=== PATIENT | female | born 1955 | race Caucasian/White ===

== ENCOUNTER 2021-11-20 15:24 | Inpatient (IN) | payer OTHER ==
[~2021-11-20] VITALS: Ht 165.1 cm; Wt 82.1 kg
[2021-11-21 01:24] VITALS: BP 159/59
--- NOTE | 2021-11-21 03:58 | NUR ---
Assumed care of pt upon admission from ED at 0013 this shift. Pt admitted via W/C et was transported to room. Pt ambulated from chair to bed ad rudy with steady gait. VSWNL. Initial health assessment with no abnormalities noted at present time. Small abrasion to right forearm left open to air. Pt's mother contacted upon admission et informed of admission et given code for communication. Pt's mother states that she does not have a guardian or DPOA at present time. Admission packet received from facility includes two affidavits for admission due to pt's inability to cognitively process admission to unit at this time. Necessary paperwork filled out et faxed to the proper authorities. Pt states, "I came from [facility]. I'm retarded and crazy and I have schizophrenia". APRNs for psych et hospitalists contacted et notified of admission et orders received. Pt currently resting in bed with eyes closed. Will continue to monitor per unit protocol.
[2021-11-21 09:29] VITALS: BP 131/94
[2021-11-21 10:48] LABS: ANION GAP 10 mmol/L (7-16); BUN 12 mg/dL (7-18); CALCIUM 9.3 mg/dL (8.5-10.1); CHLORIDE 96 mmol/L (98-107); CHOLESTEROL 245 mg/dL (<200); CO2 25 mmol/L (21-32); CREATININE 0.7 mg/dL (0.6-1.0); GLUCOSE 156 mg/dL (74-106); HDL CHOLESTEROL 46 mg/dL (>40); LDL CHOLESTEROL 163 mg/dL (<100); POTASSIUM 3.8 mmol/L (3.5-5.1); SODIUM 131 mmol/L (136-145); TC:HDL 5.3 Ratio (Not establshd); TRIGLYCERIDE 181 mg/dL (<150); VLDL 36 mg/dL (<40)
--- NOTE | 2021-11-21 11:17 | NUR ---
ANXIOUS FACIAL EXPRESSION AND PRESSURED SPEECH WHEN APPROACHED IN DAYROOM FOR INITIAL ASSESSMENT THIS AM. WHEN NURSE INTRODUCED SELF RESPONDED WITH A LONG RAMBLING CONVERSTION WHICH WAS INCOHERENT AT TIMES AND DIFFICULT TO FOLLOW-"I CAME FROM [facility]-I SO I COULD GO TO [facility]" "I DON'T WANT TO -AM I GOING TO "OFFERED AM MEDS AND STATES "IF I TAKE THOSE MEDS WILL I "AT THIS POINT TURNED HEAD AWAY FROM STAFF AND WAS WHISPERING TO UNSEEN OTHERS. DID TAKE AM MEDICATIONS-APPEARS UNABLE TO ANSWER QUESTIONS RE PHYSICAL HEALTH OR EVENTS LEADING TO ADMIT SHE STARES INTENTLY AHEAD WHEN ASKED AND OFFERS NO VERBAL RESPONSES. DID ALLOW NURSE TO LISTEN TO HEART LUNGS AND BS. DENIES PAIN. GAIT APPEARS STEADY AT THIS TIME.
--- NOTE | 2021-11-21 13:06 | NUR ---
New admit to [facility] with SI and manic episode. Noted with consult stating "diet instruction, carb control diet." Noted with very little information on pt thus far as she was admitted after midnight this morning. RD did not attempt to visit pt r/t chart review revealed pt not answering questions for staff, stares blankly when asked questions and gives no verbal response. Other reports of pt with incoherent ramblings/stories. She is on carb control diet. Labs reviewed and show hyperglycemia; A1c pending. B12 deficiency, supplementation in place. Chol and trig elevated; on statin. Only 50% intake at bkft this AM, no other meals to assess intakes. RD to follow up next week. Place as low nutrition risk at this time.
--- NOTE | 2021-11-21 15:36 | NUR ---
VISTARIL 50MG GIVEN PO PRN FOR ANXIETY/AGITATION 1T 0830 AND REPEATED AT 1530 BECOMES LOUDLY TEARFUL-STATING SHE IS GOING TO LIVE HERE-SHE WAS PROCLAIMING LOUDLY IN THE DAYROOM THAT SHE HAD "LOST HER VAGINA" AND "COULDN'T FIND THE HOLE" WAS NOTED TO BE ABLE TO SIT CALMLY FOR 5-10 MINUTES AFTER PRN VISTARIL
--- NOTE | 2021-11-21 17:49 | NUR ---
JEREMY and Dr. Auguste met with the Pt. Pt was unable to provide any history or relevant information due to active psychosis. SW was able to call the Pt's placement [facility]. They connected JEREMY with the Pt's clinical case manager, Lan Cardoso [phone]. Lan was able to provide some history on the Pt. Lan informed that [facility] [place] [facility], [facility] does manage the Pt's medications however Pt is able to leave at will. Lan believes the Pt went to the store and purchased the asprin. Lan informed about 2 months ago the Pt went inpt and was put on Zyprexa. Pt made complaints about side effects of the medications. This is also when SI statements started. Pt also had an increase in anxiety. Lan stated they could not identify any specific triggers or event. Lan stated the Pt was unhappy being at [facility] and felt she needed to be in a state hospital. Lan confirmed the Pt did not have a guardian or DPOA. Lan stated prior to the Pt's decline Pt was doing well in the program. JEREMY informed that the Pt would benefit from a guardian. Also a higher level of care. Lan voiced agreement. Lan informed that it is very difficult to get [facility] to pursue guardianships. Lan stated he believed the Pt would do better in an RCF or assisted living level of care. JEREMY explained that with the Pt's chonic mental illness a lot of places may be hesitant to accept due to the Pt not having a DPOA or guardian. Lan stated he would talk to his processing talc and borate supervisor about a guardianship. JEREMY will continue to follow
[2021-11-21 21:05] VITALS: BP 159/73
--- NOTE | 2021-11-22 06:08 | NUR ---
Assumed care of pt at 1900. Pt calm et cooperative this shift. Took medications whole without difficulty. Ambulates the halls ad rudy with steady gait. VSWNL. Health assessment with no abnormalities noted at present time. Denies SI/Hi at present time but unsure as to whether the pt truly understands the questions answered due to some cognitive deficits. Isolated in room most of shift. Currently resting in bed with eyes closed. Will continue to monitor per unit protocol.
[2021-11-22 07:12] LABS: GLYCOHEMOGLOBIN (HGB A1C) 6.9 % (4.8-5.6)
[2021-11-22 07:45] VITALS: BP 123/40
[2021-11-22 09:27] VITALS: BP 123/68
--- NOTE | 2021-11-22 10:46 | NUR ---
RESUMMED CARE FROM OVERNIGHT SHIFT THIS AM, PATIENT LYING IN BED QUIET. UPON ASSESSING PATIENT SHE IS VERY ANXIOUS AND ASKED IF SHE COULD STAY IN HER ROOM. SHE STATES SHE IS AFRAID OF EVERYTHING AND SOMETIMES SHE JUST WANTS TO . I TALKED WITH PATIENT TO REASSURE HER NO ONE HER IS GOING TO HURT HER AND THAT SHE IN IN THE HOSPITAL AND IS SAFE. PATIENT DENIES SI/HI/AH/VH AT PRESENT; PATIENT DOES HAVE ANXIETY AND DEPRESSION THAT SHE RATES AT A 10. PATIENTS ABDOMEN SOFT BOWEL SOUNDS PRESENT, PATIENTS LUNGS CLEAR. PATIENT HAS ATHLETE FOOT ON BOTH FEET AND HAS ANTI FUNGAL CREAM FOR FEET. WILL CONTINUE TO MONITOR PATIENT FOR SAFETY AND BEHAVIORS.
[2021-11-22 13:31] LABS: ABSOLUTE NEUTROPHILS 6.5 thou/uL (1.4-8.2); BASOPHILS 0.8 % (0.0-2.0); EOSINOPHILS 0.2 % (0.0-3.0); HEMATOCRIT 39.1 % (37.0-47.0); HEMOGLOBIN 12.7 gm/dL (12.0-15.0); LYMPHOCYTES 18.3 % (24.0-44.0); MCH 28.1 pg (26.0-34.0); MCHC 32.5 g/dL (28.0-37.0); MCV 86.4 fL (80.0-100.0); MONOCYTES 10.8 % (1.0-8.0); PLATELET COUNT 327 thou/uL (150-400); POLYS 69.9 % (36.0-66.0); RBC 4.53 mil/uL (4.20-5.00); RDW 14.1 % (10.5-14.5); WBC 9.3 thou/uL (4.0-11.0)
[2021-11-22 13:50] LABS: ALBUMIN 3.7 g/dL (3.4-5.0); CALCIUM 9.3 mg/dL (8.5-10.1); CREATININE 0.7 mg/dL (0.6-1.0); MAGNESIUM 2.5 mg/dL (1.8-2.4); POTASSIUM 4.4 mmol/L (3.5-5.1); TOTAL BILIRUBIN 0.4 mg/dL (0.2-1.0); TOTAL PROTEIN 7.4 g/dL (6.4-8.2)
[2021-11-22 19:32] VITALS: BP 93/52
[2021-11-22 21:27] LABS: URINE BILIRUBIN NEGATIVE (Negative); URINE BLOOD TRACE (Negative); URINE CLARITY SL CLOUDY; URINE COLOR YELLOW; URINE GLUCOSE-RANDOM* NEGATIVE (Negative); URINE KETONES NEGATIVE (Negative); URINE LEUKOCYTES-REFLEX 1+ (Negative); URINE NITRITE-REFLEX NEGATIVE (Negative); URINE PROTEIN (DIPSTICK) 1+ (Negative); URINE SPECIFIC GRAVITY >= 1.030 (1.005-1.035); URINE UROBILINOGEN 0.2 E.U./dl (0.2-1.0)
[2021-11-22 21:42] LABS: CASTS None Seen /LPF (None Seen); SQUAMOUS 4-10 Moderate /LPF (0-3)
[2021-11-22 21:43] LABS: BACTERIA-REFLEX >30 Many /HPF (None Seen); CRYSTALS None Seen /LPF (None Seen); URINE RBC 1-2 Rare /HPF (NONE SEEN); URINE WBC-REFLEX 6-15 Few /HPF (0-5)
--- NOTE | 2021-11-22 21:53 | H ---
[facility] [place] [address] HISTORY AND PHYSICAL Name: BRENT DUNCAN Room #: 525A-A ADM IN M.R.#: [id number] Admission: 11/21/21 Attend Phys: Robel English DO Discharge: Date of : 59 Report #: [id number] THIS REPORT FOR: cc: FAM - Family physician unknown FAM - Family physician unknown Robel English DO ~ DATE OF SERVICE: 11/21/2021 INPATIENT PSYCHIATRIC EVALUATION ATTENDING PSYCHIATRIST: Robel English DO MEDICAL CONSULTANTS: Silvina Bella APRN and Adonay Goodrich MD, and his hospitalist team. REASON FOR ADMISSION: Intentional suicide attempts, overdose, status post medical admission at [facility]. SOURCES OF INFORMATION: Mostly records from [facility], the patient is very psychotic and a very poor historian. CHIEF COMPLAINT: "Im in heaven" HISTORY OF PRESENT ILLNESS: This is a 66-year-old single female transferred from [facility] status post a medical admission for a suicide attempt on aspirin. Records reviewed, including affidavits. The patient was a nurse at [facility], states upon assessment, the patient stated "myself, I took an overdose and committed suicide." When asked why she did that, the patient stated "I was in a deep mine and I can't take any meds for it." communications officer, Ram from the [employer] did an affidavit that was dispatched to [facility] in regard to her suicide attempt. Upon arrival, I contacted the patient, who states that approximately 3 hours prior to calling, she swallowed 92 aspirin pills orally. The patient stated that she took the medicine due to wanting to because she is tortured. It looks like her date of admit was 11/13/2021 at [facility]. Psychiatric consultation there stated she was anxious, dysphoric, intermittently labile on various topics. Her speech becomes loud and pressured. States she has been depressed for months. She has been considering suicide for a few weeks. Collateral we got from [facility] stated she has been decompensated for a 2-month time period. Psych consult from [facility] states "I thought about drowning, but could not get the nerve up, the water would bubble back out even when I tried the "subtrick." The patient states she eventually decided to overdose on aspirin, took ____ mg aspirin. States she was intending to kill herself, "God didn't want to take me, he wouldn't let it work, I laid in bed for 3-1/2 hours waiting to and I couldn't ." She denied auditory or visual hallucinations and [facility] [address] [place] [address] HISTORY AND PHYSICAL Name: BRENT DUNCAN Room #: 525A-A ADM IN M.R.#: [id number] Admission: 11/21/21 Attend Phys: Robel English DO Discharge: Date of : 59 Report #: [id number] claims she has not had AVH of any sort "in a month." There are no voices, they are shutdown, they are , to the world. She actually told them at [facility] she wanted to get her meds fixed and requested a psychiatric admission. She denied access to firearms. MEDICATIONS: Her home medications were Reglan, miconazole nitrate, vitamin D3, escitalopram, calcium carbonate, rosuvastatin, sitagliptin, hydroxyzine, pantoprazole, metformin, propranolol, clonazepam, olanzapine, trazodone, melatonin. REVIEW OF SYSTEMS: From [facility]: CONSTITUTIONAL No chills or fever. EYES: Normal. No change. ENT: No change. RESPIRATORY: No change. CARDIOVASCULAR: No change. GASTROINTESTINAL: She complained of nausea initially, not today. GENITOURINARY: No change. NEUROLOGIC: She had denied headache or vision changes. LABORATORY DATA: From [facility]: I will read some of the highlights, it looks like from 11/13/2021. Sodium 136, potassium 2.8, chloride 99, bicarbonate 30, anion gap 10, BUN 6, creatinine 0.6, GFR 106.8, calcium 7.2, magnesium 1.8, salicylate 19. VBG was 7.46, pCO2 of 40.5, pO2 of 18.2. She was on 21% on room air. White count 13.1, H and H 12.5 and 35.7, platelet count 286. ADDITIONAL INFORMATION: From [facility]: It looks like they put a central line in her. I did get a report that Nephrology was consulted, was in the ICU several days. She underwent dialysis and sodium bicarbonate administration, so she did go into significant renal failure from her overdose. I do not believe she was on the ventilator at all. Looks like her white count reached a high of 17.4 thousand. EKG from 11/13/2021 showed QTc 436, QT interval 386, ventricular rate 84. Salicylate level, I am not sure what it peaked at, it was 2.2 on 11/14/2021. Looks like Dr. Love saw her. PAST PSYCHIATRIC HISTORY: Includes greater than 30 psychiatric admissions, 3 prior suicide attempts including prior Thorazine overdose. [facility] with [facility], sees Ms. Phan. She lives at [facility], which I believe is a [employer] having sponsored fpc. Denies owning or access to firearms. No alcohol, tobacco or illicit drug use. She is unemployed, on disability. I was looking also for more of her medical history, which does not actually say any particular medical problems prior to this overdose and I suspect missing a lot of information on her. [facility] [address] [place] [address] HISTORY AND PHYSICAL Name: BRENT DUNCAN Room #: 525A-A ADM IN .R.#: [id number] Admission: 11/21/21 Attend Phys: Robel English, Discharge: Date of : 59 Report #: [id number] Followup labs from 11/16/2021, sodium 137, potassium 3.9, chloride 100, bicarbonate 23, anion gap 18, glucose random 122, BUN 4, creatinine 0.6, calcium 9.1, magnesium 2.1. White count 7.7, H and H 11.5 and 34.2. Again, this is from 11/16/2021. Platelet count 248. PHYSICAL EXAMINATION: VITAL SIGNS: Here at [facility], temperature 37.1, pulse 68, respirations 18, BP 131/94, O2 sat 97%. Weight 82.67 kilograms. Current laboratories that were done today, sodium down to 131, potassium 3.8, chloride 96, bicarbonate 25, anion gap 10, BUN 12, creatinine 0.7, estimated GFR 84. Triglycerides 181, cholesterol 245, LDL 163, HDL 46. B12 low at 195. We will going ahead with IM replacement. TSH 0.459. COVID-19 serology was negative. No imaging done so far. The hospitalist's note adds additional medical history of diabetes. A1c is pending here at [facility]. Hypertension, hyperlipidemia and the hospitalist started IM B12 replacement. CURRENT MEDICATIONS: Here at [facility], cyanocobalamin; B12 IM x 3 days; Lexapro 10 mg p.o. daily; B12 1000 mcg oral daily, starting on the . Olanzapine was 10 mg at bedtime, I added a 5 mg a.m. dose. Melatonin 5 mg at bedtime. Atorvastatin 40 mg at bedtime. She is on miconazole topical, I guess she has yeast rash. Metformin 500 mg p.o. b.i.d., Protonix 40 mg p.o. daily, calcium carbonate 600 mg before meals. There is hydroxyzine 50 mg 4 times a day p.r.n. for acute anxiety. Otherwise, house PRNs. ALLERGIES: NUMEROUS, CHLORPROMAZINE, FLUPHENAZINE, HALOPERIDOL. MENTAL STATUS EXAMINATION: Well-developed, much older than stated age appearing female. Attention impaired. Concentration impaired. Speech slowed and monotone. Grossly delayed in response. Denied worry. She denies auditory, visual, or tactile hallucinations, but I really do not think she was responding appropriately to my questions. Mood and affect was constricted, congruent. Memory not formally tested. Insight and judgment impaired. Fund of knowledge well below average. FORMULATION: A 66-year-old female transferred from [facility] after an intentional overdose. The patient was admitted under a 96-hour hold; however, it turns out she has no DPOA and no guardian, so if she does not sign in voluntarily, we will be discharging her at the end of the . DIAGNOSIS: Schizoaffective disorder, depressed type, acute exacerbation. Medical comorbidities include diabetes, hypertension, hyperlipidemia, reportedly [facility] [address] [place] [address] HISTORY AND PHYSICAL Name: BRENT DUNCAN Room #: 525A-A ADM IN M.R.#: [id number] Admission: 11/21/21 Attend Phys: Robel English DO Discharge: Date of : 59 Report #: [id number] status post recent dialysis; severe B12 deficiency, under 200 mcg/dL. STRENGTHS: She is insured, has placement. WEAKNESSES: Grossly psychotic. No surrogate decision maker. PLAN: Admitted involuntarily to [facility] to evaluate and stabilize, obtain collateral. Hospitalist is consulted. I will go ahead and get an updated EKG on her since we are going to be working on antipsychotic. ESTIMATED LENGTH OF STAY: Probably in the 5-7 day' range given her involuntary nature and that she probably will not meet criteria for a 21-day petition. Time spent on this case was greater than 60 minutes, greater than 50% of the time was spent on review of records and coordination of care. <ELECTRONICALLY SIGNED> By: Robel English DO 11/22/21 2153 [id number] Robel English DO /nt
--- NOTE | 2021-11-23 04:27 | NUR ---
Assumed care of pt at 1900. Pt calm et cooperative this shift. Took medications whole without difficulty but had somatic c/o later in the shift which she attributes to her medications. Refused add on ordered meds of Atorvastatin et Lovenox injection this shift because she states they are going to make her sick et kill her. HS accucheck 168 resulting in Lispro 3u administered via sliding scale. Ambulates the halls ad rudy with steady gait. VSWNL. Health assessment with no abnormalities noted at present time. Pt denies SI/HI/AVH at present time but unsure if she completely understands the questions due to cognitive deficit. Currently resting in bed with eyes closed. Will continue to monitor per unit protocol.
[2021-11-23 09:10] VITALS: BP 134/56
--- NOTE | 2021-11-23 10:32 | EKG ---
[address] [address] ELECTROCARDIOGRAM REPORT Name: BRENT DUNCAN Room #: [facility]- ADM IN M.R.#: [id number] Admission: 11/21/21 Attend Phys: Robel English DO Discharge: Date of : 59 Report #: [id number] [facility] Test Date: 2021-11-23 Test Time: 09:44:25 Pat Name: BRENT DUNCAN Department: Room: [facility] Gender: F [employer] Education Consultant: [place] : 1955 Requested By: Marcelina Moreno Order Number: [id number] MD: Juan Francisco Santana Measurements Intervals [place] Rate: 81 P: 58 [place]: 142 QRS: -10 QRSD: 89 T: 57 QT: 406 QTc: 472 Interpretive Statements Sinus rhythm No previous ECG available for comparison Electronically Signed On 11-23-2021 10:32:03 DEMAND INSPECTOR by Juan Francisco Santana [email or web address] <ELECTRONICALLY SIGNED> By: Juan Francisco Santana MD, [facility] 11/23/21 1032 0944 0944 Juan Francisco Santana MD, FACC /EPI
--- NOTE | 2021-11-23 11:09 | NUR ---
HAS BEEN WITHDRAWN TO ROOM THIS AM. REFUSED BREAKFAST AND AM INSULIN NOT ADMINISTERD FOR REFUSAL TO EAT. TEARFUL AND SOMATIC DURING 1;1 ASSESSMENT WITH NURSING STAFF-OFFERS VAGUE SOMATIC COMPLAINTS STATING SEVERAL TIMES "I'M SICK" BUT UNABLE TO SPECIFY OTHER THAN STATING "IT'S IN MY BODY-IT'S ALL OVER MY BODY" DENIES SPECIFIC AREA OF PAIN-LUNGS CLEAR-NO COUGH OR SOB NOTED. 02 SAT 97 PERCENT ON RA. BS ACTIVE X4-DENIES N/V BUT STATES STOMACH IS "SICK"NO BLADDER DISTENSION NOTED AND HAS VOIDED IN TOILET X1 SO FAR THIS AM. SKIN W/D. AFEBRILE. BP 134/56. HEART RATE 80-REGULAR. NOTED TO BE TALKING TO UNSEEN OTHERS DURING 1;1 INTERACTION WHEN ASKED WHO SHE WAS TALKING TO TURNS HEAD AWAY AND DOES NOT ANSWER.
[2021-11-23 20:20] VITALS: BP 141/74
[2021-11-23 20:21] VITALS: BP 141/74
--- NOTE | 2021-11-23 23:18 | NUR ---
PATIENT HAS BEEN IN HER ROOM ALL EVENING AND DROWSY. SHE APPEARS TO BE SLEEPING AT THIS TIME. SHE IS A/0X2. SHE DID AWAKEN TO USE THE BATHROOM AND THEN BACK TO BED. SHE TAKES HER MEDS WHOLE WITH WATER. SHE JUST WANTS TO BE LEFT ALONE TO SLEEP. SHE DENIES SI/HI/AVH AT THIS TIME. PATIENT IS A LOW FALL RISK BUT D/T INCREASE DROWSINESS, BED ALARM PLACED ON. PATIENT IRRITABLE WHEN AWOKEN. ROUTINE ROUNDS TO ASSESS SAFETY AND STATUS OF PATIENT.
[2021-11-24 08:42] VITALS: BP 124/45
[2021-11-24 10:00] VITALS: BP 124/45
--- NOTE | 2021-11-24 13:03 | NUR ---
Assumed pt care from overnight shift this am. Client was in bed resting during this time, and did not want to get out of bed, stating that she wanted to rest. Client presented alert and oriented 2x, and would not answer any further orientation questions, calling herself "retarded" and asking if she could continue to sleep. Staff used therapeutic communication at this time to communicate with client, and coaxed client to answer further questions. Client denied si/hi and hallucinations at this time. Client did not voice depression, but stated that she is "always anxious." Client given all medications at this time. Client also informed that she would later on be going for a nuclear medicine study and would need an IV placement. Nursing demonstrated how IV would work to pt, and pt voiced understanding. Pt lung sounds were clear. Bowel sounds active. Last bm 11/23/21 per pt report. Pt given prn hydox as well as scheduled olanzapine before perfusion study. IV inserted. Taken to study and came back to floor. Pt did not voice any concerns after this. No further status changes at this time.
[2021-11-24 19:55] VITALS: BP 135/77
[2021-11-24 19:56] LABS: URINE BILIRUBIN NEGATIVE (Negative); URINE BLOOD NEGATIVE (Negative); URINE CLARITY SL CLOUDY; URINE COLOR YELLOW; URINE GLUCOSE-RANDOM* TRACE (Negative); URINE KETONES NEGATIVE (Negative); URINE LEUKOCYTES-REFLEX NEGATIVE (Negative); URINE NITRITE-REFLEX NEGATIVE (Negative); URINE PROTEIN (DIPSTICK) NEGATIVE (Negative); URINE UROBILINOGEN 0.2 E.U./dl (0.2-1.0)
[2021-11-24 20:32] VITALS: BP 135/77
--- NOTE | 2021-11-24 20:43 | NUR ---
PATIENT WAS IN BED AWAKE WHEN ASSUMED CARE OF PATIENT AT 1900. HER FIRST STATEMENT WAS THAT SHE IS RETARDED. I ASKED HER WHY SHE THOUGHT THAT AND SHE SAID, PLEASE DON'T MAKE FUN OF ME. I EXPLAINED I WAS NOT MAKING FUN OF HER BUT WAS CURIOUS WHY SHE THOUGHT SHE WAS RETARDED. I TOLD HER SHE WAS NOT RETARDED. SHE WAS LESS IRRITABLE TONIGHT WITH CARES. SHE COOPERATED IN TAKING HER MEDS WHOLE AND HER ASSESSMENT. SHE DID ASK FOR A SNACK AND I LET HER KNOW THAT SNACKS WERE IN THE DINING ROOM AND IT WAS TIME FOR HER TO GO GET ONE. SHE DID GO GET A SNACK AND ATE IT IN THE DINING ROOM WITH OTHERS WHILE WATCHING TV. SHE WENT BACK TO HER ROOM AND SLEPT. UA WAS COLLECTED AT BEGINNING OF THE SHIFT AND SENT TO LAB FOR ANALYSIS. GLUCOSE WAS 221 AND 4 U OF LISPRO WAS GIVEN. PATIENT DENIES PAIN, SI/HI/AVH. VSS. BED IN LOW POSITION. PATIENT IS NOT A FALL RISK. ROUTINE ROUNDS TO ASSESS SAFETY AND STATUS OF PATIENT. PATIENT DID REQUEST TRAZADONE FOR SLEEP TONIGHT.
[2021-11-25 07:47] VITALS: BP 132/71
--- NOTE | 2021-11-25 11:56 | NUR ---
Alert and orientated X3. Isolates to room when not in group/meals. Denies SI/HI. Breath sounds clear. Reg HR ausculated. Color pink with brisk capillary refill and palpable peripheral pulses. Incontinent of yellow urine per brief. Active bowel sounds over soft, rounded abdomen. Excoriated reddened area under R breast, antifungal cream applied. Ambulates with regular, steady gait. Currently eating lunch without s/o distress.
[2021-11-25 20:08] VITALS: BP 108/58
--- NOTE | 2021-11-26 03:49 | NUR ---
11-25-21 CARE TRANSFERRED 0 OBSERVED PT SITTING IN DAY ROOM. LATER PT AAOX2, VSS, RR EVEN AND NONLABORED ON RA, LUNGS CLEAR, HT RR, ABD SOFT/ACTIVE, PT DENIES ANY PAIN AND SI/HI. PT WAS CALM AND COOPERATIVE DURING NURSING ASSESSEMENT. PT HAD NO DIFFICULTIES TAKING MEDICATION WHOLE WITH WATER. PT BED WAS ADJUSTED FOR COMFORT. LATER NOTED PT RESTLESS AND WALKING BACK AND FORTH FROM DAY ROOM TO ROOM; PT DENIED PAIN. LATER NOTED PT RESTING WITH EYES CLOSED. PT WILL CONTINUE TO BE MONITOR PER [facility] PROTOCOL.
[2021-11-26 09:38] VITALS: BP 141/90
[2021-11-26 11:49] VITALS: BP 141/90
--- NOTE | 2021-11-26 13:05 | NUR ---
RESUMMED CARE; PATIENT LOCATED IN ROOM RESTING IN BED; A&O*2; DENIES PAIN-SOB-CP; PATIENTS CONCERN IS IN REGARDS TO A PLACE TO LIVE OUTSIDE OF [facility]; PATIENT NOTED COMING UP TO NURSES STATION CONCERNED ABOUT "HOW AM I GOING TO PAY FOR INTERMEDIATE, JUST KEEP ME HERE, I HAVE A BED HERE." PATIENT REDIRCTABLE; DENIES SI/HI/AVH; STATES "I AM ANXIOUS BUT I DONT KNOW" & "YEAH, I AM DEPRESSED ABOUT WHERE I AM GOING TO SLEEP." PRESENTS TO FACILITY COORDINATOR- WITHDRAWN, MED/MEAL COMPLIANT, DEPRESSED; RASH PRESENT UNDER THE RIGHT BREAST-CREAM APPLIED PER MAR; STEADY GAIT-SLOW PACE; LOW FALL PRECAUTIONS IN PLACE; WILL CONTINUE TO MONITIOR FOR SAFETY AND BEHAVIORS;
[2021-11-26 19:26] VITALS: BP 144/44
--- NOTE | 2021-11-27 04:09 | NUR ---
11-27-21 CARE TRANSFERRED 1900 OBSERVED PT SITTING IN DAYROOM. PT AAOX2, VSS, RR EVEN AND NONLABORED RA, LUNGS CLEAR, HT RR, ABD SOFT/ACTIVE/NONTENDER. PT DENIES PAIN AND SI/HI. PT PRESENTS ANXIOUS AND HAS REMAINED COOPEATIVE THROUGHOUT NURSING ASSESSMENT. DURING MEDICATION ADMIN PT HAD NO DIFFICULTIES TAKING MEDICATION WHOLE. PT BED WAS ADJUSTED FOR COMFORT, PT WILL CONTINUE TO BE MONITOR PER [facility] PROTOCOL.
--- NOTE | 2021-11-27 08:47 | NUR ---
Pt remains on SBH. Per documentation, progressing slowly towards goals. More verbal and interactive with staff than last week. A1c 6.9, metformin increased today. [facility] variable but avg 70% across all meals and participates in snack times on the unit. Ensure at meals ordered, will change to Glucerna. With interventions in place, remains low nutrition risk.
[2021-11-27 08:58] VITALS: BP 126/55
--- NOTE | 2021-11-27 10:15 | NUR ---
Pt has a follow up psychiatric appointment with Dr.Tracy Greene at [facility] on 12/24/2021 @ 1400
[2021-11-27 10:16] VITALS: BP 126/55
[2021-11-27 10:18] VITALS: BP 126/55
--- NOTE | 2021-11-27 10:32 | NUR ---
RESUMMED CARE; A&O*2; DENIES PAIN-SOB-CP; PATIENT PRESENTS ANXIOUS ABOUT LEAVING TODAY FOR [facility]; PATIENT STATES "I ATTEMPTED SUICIDE THERE WITH A BOTTLE OF ASPRIN, I CANT GO BACK THERE." PATIENT IS EASILY REDIRECTABLE THROUGHOUT THE MORNING AND CALMED DOWN; GAIT IS SLOW BUT STEADY; SKIN NOTED TO HAVE A RASH UNDER THE RIGHT BREAST-CREAM APPLIED PER MAR; VSS ON ROOMAIR; PATIENT DENIES SI/HI/AVH; LOW FALL PRECAUTIONS ARE IN PLACE AT THIS TIME; WILL CONTIUE TO MONITIOR PER [facility] PROTOCOL;
[2021-11-27 11:26] VITALS: BP 126/55
[2021-11-27] MEDS ORDERED: LIPITOR10 MG PO (11:45)
[2021-11-27] MEDS ORDERED: TRAZODONE HCL50 MG PO (11:46)
[2021-11-27] MEDS ORDERED: LISINOPRIL2.5 MG PO (11:46)
[2021-11-27] MEDS ORDERED: LEXAPRO 10 MG T10 MG PO (11:46)
[2021-11-27] MEDS ORDERED: ZYPREXA 10 MG T10 MG PO (11:51)
[2021-11-27] MEDS ORDERED: CALTRATE-600 W1 EACH PO (11:51)
[2021-11-27] MEDS ORDERED: METFORMIN HCL500 MG PO (11:52)
[2021-11-27] MEDS ORDERED: PROTONIX40 M2 PO (11:52)
[2021-11-27] MEDS ORDERED: FOLIC ACID1 MG PO (12:03)
[2021-11-27] MEDS ORDERED: MICONAZOLE NITR15 GM TOP (12:03)
[2021-11-27] MEDS ORDERED: VITAMIN D325 MC2 PO (12:04)
[2021-11-27] MEDS ORDERED: VITAMIN B-1100 M2 PO (12:04)
[2021-11-27] MEDS ORDERED: MELATONIN5 M1 PO (12:05)
[2021-11-27 15:07] VITALS: BP 126/55
--- NOTE | 2021-11-28 09:00 | D ---
[facility] [place] [address] DISCHARGE SUMMARY Name: BRENT DUNCAN Room #: 519A-A [facility] IN M.R.#: [id number] Admission: 11/21/21 Attend Phys: Robel English DO Discharge: 11/27/21 Date of : 59 Report #: [id number] THIS REPORT FOR: cc: FAM - Family physician unknown FAM - Family physician unknown Robel English DO ~ DATE OF SERVICE: 11/27/2021 INPATIENT PSYCHIATRIC DISCHARGE SUMMARY ATTENDING PSYCHIATRIST: Robel English D.O. BRUSH FILLER HAND: Daniel Saleem M.D. DISCHARGE DIAGNOSES: Schizoaffective disorder, depressed type, improved. Additional comorbidities include diabetes mellitus type 2; hypertension; hyperlipidemia; history of morbid obesity, now qualifying for mild obesity with BMI of 30.1. The patient is discharging to the [facility]. Psychiatric and medical care per receiving facility. I should add, she is managed at [facility]. DISCHARGE DIET: Diabetic 1800-calorie diet. ACTIVITY LEVEL: As tolerated, 24-hour supervision and assistance is advised. DISCHARGE MEDICATIONS: Atorvastatin 10 mg oral daily at bedtime for hyperlipidemia, lisinopril 2.5 mg oral daily 0900 for hypertension and kidney protection, escitalopram 10 mg oral daily for depression, trazodone 75 mg oral at bedtime for sleep, olanzapine 10 mg oral twice a day for psychosis, calcium carbonate with vitamin D3 at 600 mg oral before meals for supplementation, Protonix 40 mg oral daily for GERD, metformin 500 mg oral daily at 0900 for diabetes, miconazole nitrate applied under right breast for 2 more weeks for Jeny, folic acid 1 mg oral daily at 1800 for supplementation, thiamine mononitrate 100 mg daily at 1800 for supplementation, vitamin D3 at 2000 international units oral daily, melatonin 5 mg oral at bedtime for sleep. LABORATORY DATA: This admission, she had a Klebsiella pneumoniae urine culture on the 11/22/2021. This was deemed contaminated specimen and she was not symptomatic of UTI, so was not treated. Otherwise laboratory this admission, hematology from 11/22/2021, white count 9.3, H and H 12.7 and 39.1, platelet count 327. Coagulation: D-dimer 0.81. Chemistry: Sodium 136, potassium 4.4, chloride 101, bicarbonate 25, anion gap 10, BUN 15, creatinine 0.7, estimated GFR 84, glucose 6.9, calcium 9.3, magnesium 2.5, total bilirubin 0.4, AST 13, ALT 34, alkaline phosphatase 83, total protein 7.4, albumin 3.7, triglycerides 181, cholesterol 245, LDL 163, HDL 46, B12 level low at 195, TSH 0.459. Urinalysis: She had several positives, but again, negative culture result. [facility] [address] [place] [address] DISCHARGE SUMMARY Name: BRNET DUNCAN Room #: 519A-A DIS IN M.R.#: [id number] Admission: 11/21/21 Attend Phys: Robel English DO Discharge: 11/27/21 Date of : 59 Report #: [id number] SARS-CoV-2 PCR was not detected. Actually, we did a repeat urinalysis and that was clean on 11/24/2021 compared to one with positives on 11/22/2021. IMAGING STUDIES: This admission, she had a V/Q scan of her lungs, which was low probability for PE and swelling in her lower extremities, which was negative for DVT. REASON FOR ADMISSION: Back on 11/21/2021, a 66-year-old female transferred from [facility] after intentional overdose on aspirin. She reportedly required dialysis. The patient is at [facility] with long history of schizoaffective disorder. HOSPITAL COURSE: The patient was admitted to Geriatric Psychiatry Unit. She was initially very focused on heaven and angels, had poor reality testing. I increased her olanzapine. The patient's obsession and talk of angels and heaven essentially extinguished. The patient remained focused on her discharge. At first, she was disliking [facility], then she became open to it. The patient unfortunately does not have a DPOA, guardian/conservator, etc., and opportunities to get her more supportive placement are not available at this time. The patient was not suicidal or homicidal on day of discharge. PHYSICAL EXAMINATION: VITAL SIGNS: Temperature 36.5, pulse 74, respirations 16, BP 126/55. MUSCULOSKELETAL: Unkempt, large habitus female. MENTAL STATUS EXAMINATION: A well-developed, unkempt female, appearing stated age. Attention limited. Concentration limited. Speech loud, spontaneous. Thought process linear and goal directed. Thought content focused on discharge and leaving. Mood and affect okay, congruent, but blunted only affect, if not entirely congruent I should say. Memory not formally tested. No auditory or visual type hallucinations. Insight and judgment were limited. Fund of knowledge below average. PROGNOSIS: For this patient is guarded given the serious overdose with chronic mental illness and limited provisions for. <ELECTRONICALLY SIGNED> By: Robel English, DO 11/28/21 0900 21 [id number] Robel English, DO /nt
== END 2021-11-27 14:51 | disposition home or self-care (01) | DRG 885 ==
LOC: SBH
PROVIDERS: Hospitalist; Internal Medicine; Nurse Practitioner Family; Physical Medicine & Rehabilitation; ADMIT Psychiatry & Neurology Psychiatry; ATTEND Psychiatry & Neurology Psychiatry
DX: F25.1 Schizoaffective disorder, depressive type (principal); R45.851 Suicidal ideations; E11.9 Type 2 diabetes mellitus without complications; I10 Essential (primary) hypertension; R53.81 Other malaise; F31.9 Bipolar disorder, unspecified; F22 Delusional disorders; E78.5 Hyperlipidemia, unspecified; E55.9 Vitamin D deficiency, unspecified; E66.01 Morbid (severe) obesity due to excess calories; Z20.822 Contact with and (suspected) exposure to COVID-19; Z68.30 Body mass index [BMI] 30.0-30.9, adult; Z79.899 Other long term (current) drug therapy; Z88.8 Allergy status to other drugs, medicaments and biological substances; Z79.84 Long term (current) use of oral hypoglycemic drugs
CPT/HCPCS: 10880

== ENCOUNTER 2021-11-20 16:54 | Emergency (ER) | payer OTHER | END 2021-11-21 00:03 | LOC: ER 16:54 | PROVIDERS: Physician Assistant | DX: F22 Delusional disorders (principal); Z20.822 Contact with and (suspected) exposure to COVID-19 ==